=== PATIENT | female | born 1950 | race Caucasian/White ===

== ENCOUNTER 2018-07-23 10:00 | Outpatient (CLI) | payer MEDICARE, OTHER ==
--- NOTE | 2018-07-23 10:59 | GI Initial Consult Note ---
History of Present Illness General Date patient seen: Jul 23, 2018 Time patient seen: 10:55 Referring physician: HAKAN Reason for Consultation: ANEMIA Present Illness HPI 68 year old female patient presents today for evaluation of anemia with positive FOB. Patient has c/o of generalized abdominal pain, constipation and abdominal bloating. In addition, states she has periods of fatigue. Her last EGD / colonoscopy was performed in 2006. Denies any unintentional weight loss or changes in dietary habits. No signs of abuse or neglect. Patient is not fall risk. See nursing medication reconciliation list. Allergies: Coded Allergies: Sulfa (Sulfonamide Antibiotics) (Unverified Allergy, Severe, 07/23/18) Patient History History Provided By: Patient, Medical Record PMH Narrative Rt ankle fracture Anxiety Depression Arthritis Past Surgical History: 2006 Left Kidney donation Family History Narrative Father >> CVA Mother >> Breast CA Social History: Denies: smoking, alcohol use, drug use, other Review of Systems All Other Systems: negative except mentioned in HPI Physical Exam T 97.0 BP 127/74 64 HR 96 RA Sp02 EP Interpretation: reviewed, normal General Appearance: well appearing, no apparent distress, alert Head: normocephalic EENT: PERRL/EOMI, normal ENT inspection Neck: supple Respiratory: normal breath sounds, no respiratory distress Cardiovascular: normal rate Gastrointestinal: normal inspection, non tender, soft, normal bowel sounds, non -distended Rectal: deferred Genitourinary: no CVA tenderness Musculoskeletal: normal inspection, back normal Neurologic: normal inspection, alert, oriented x3, responsive Psychiatric: normal inspection, judgement/insight normal, memory normal Skin: normal inspection, normal color, no rash, warm/dry, palpation normal, well hydrated Lymphatic: normal inspection, no adenopathy GI: Plan Problems: (1) Anemia (2) Colonoscopy planned (3) Abdominal pain (4) Constipation (5) Abdominal bloating Plan EGD/colonoscopy scheduled 07/31/18. - CLD & (Nulytely/Suprep/Movi-Prep) prep instructions given and acknowledged by patient. - NPO @ RI day prior procedure explained. Seen with Dr. Callejas. Thank you for this patient referral. The patient was seen and examined at bedside and all new and available data was reviewed in the patients chart. I agree with the above findings, impression and plan. (Patient seen earlier today. Signature stamp does not reflect patient encounter time.). - MD Kadie Faustin Anh-Jabier AGUILERA Jul 23, 2018 10:59
[2018-07-23] MEDS ORDERED: CRESTOR20 MG ORAL (13:48)
[2018-07-23] MEDS ORDERED: KLONOPIN0.5 MG ORAL (13:48)
[2018-07-23] MEDS ORDERED: LEXAPRO10 MG ORAL (13:48)
[2018-07-23] MEDS ORDERED: IRON325 M1 PO (13:48)
[2018-07-23] MEDS ORDERED: ACETAMINOPHEN325 M1 ORAL (13:48)
[2018-07-23] MEDS ORDERED: VITAMIN D1000 UNI1 ORAL (13:48)
[2018-07-23] MEDS ORDERED: CALCIUM500 M2 PO (13:48)
== END 2018-07-23 10:30 | disposition home or self-care (01) ==
LOC: PAN 10:00
DX: D64.9 Anemia, unspecified (principal); R19.5 Other fecal abnormalities; R10.84 Generalized abdominal pain; K59.00 Constipation, unspecified; R14.0 Abdominal distension (gaseous); F41.9 Anxiety disorder, unspecified; F32.9 Major depressive disorder, single episode, unspecified; M19.90 Unspecified osteoarthritis, unspecified site; R53.83 Other fatigue
CPT/HCPCS: 99201

== ENCOUNTER 2018-07-31 07:09 | Day surgery (SDC) | payer MEDICARE, MEDICAID ==
[2018-07-31] VITALS (8 sets, daily range): BP systolic 122–137; BP diastolic 64–79
[~2018-07-31] VITALS: Ht 157.5 cm; Wt 81.2 kg
[~2018-07-31 07:09] MED LIST: ACETAMINOPHEN325 M1 ORAL; CALCIUM500 M2 PO; CRESTOR20 MG ORAL; IRON325 M1 PO; KLONOPIN0.5 MG ORAL; LEXAPRO10 MG ORAL; VITAMIN D1000 UNI1 ORAL
[2018-07-31] MEDS ORDERED: LOVASTATIN20 MG ORAL (08:26)
--- NOTE | 2018-07-31 08:28 | Anethesia Preoperative Eval ---
Anesthesia Pre-op PMH/ROS General Date of Evaluation: Jul 31, 2018 Time of Evaluation: 08:25 Anesthesiologist: Roxana Leiva CRNA ASA Score: ASA 2 Mallampati Score Class I : Soft palate, uvula, fauces, pillars visible Class II: Soft palate, uvula, fauces visible Class III: Soft palate, base of uvula visible Class IV: Only hard plate visible Mallampati Classification: Class II Surgeon: Merrill Diagnosis: Abdominal pain, anemia Surgical Procedure: EGD & colonoscopy diagnostic Anesthesia History: none Family History: no anesthesia problems Allergies: Coded Allergies: SULFA (SULFONAMIDE ANTIBIOTICS) (Unverified Allergy, Severe, 07/30/18) SWELLING,DIFFICULTY BREATHING AND REDNESS Medications: see eMAR Patient NPO?: Yes NPO Date: Jul 31, 2018 NPO Time: 00:00 Past Medical History Cardiovascular: Reports: other - Hyperlipemia; Denies: HTN, CAD, MT, valve dz, arrhythmia Pulmonary: Reports: other - solitary kidney s/p nephrectomyfor donation; Denies: asthma, COPD, DOM Gastrointestinal/Genitourinary: Denies: GERD, CRI, ESRD, other Neurologic/Psychiatric: Reports: depression/anxiety; Denies: dementia, CVA, TIA, other Endocrine: Denies: DM, hypothyroidism, steroids, other HEENT: Denies: cataract (L), cataract (R), glaucoma, [place] (L), [place] (R), other Hematology/Immune: Reports: anemia; Denies: DVT, bleeding disorder, other Musculoskeletal/Integumentary: Reports: OA; Denies: RA, DJD, DDD, edema, other Other: obesity PMH Narrative: as above PSxH Narrative: nephrectomy directed donor Anesthesia Pre-op Phys. Exam Physician Exam Last Vital Signs Date Time Temp Pulse Resp B/P (MAP) Pulse Ox O2 Delivery O2 Flow Rate FiO2 07/31/18 08:00 Room Air 07/31/18 07:44 97.8 61 18 135/74 97 97.8 Constitutional: NAD Neurologic: CN 2-12 intact Cardiovascular: RRR Respiratory: CTA Gastrointestinal: S/NT/ND Airway Exam Mallampati Score: Class II MO: full Neck: no limitations TMD: > 3 FB ROM: full Teeth: intact Dentures: no upper, no lower Anesthesia Pre-op A/P Studies Pre-op Studies: EKG - SB inferior infact Risk Assessment & Plan Assessment: ASA 2, ok to proceed Plan: MAC Status Change Before Surgery: No Pre-Antibiotics Given Within 1 Hr of Incision: No Roxana Leiva CRNA Jul 31, 2018 08:28
--- NOTE | 2018-07-31 08:48 | Pre-Procedure Note/Attestation ---
Pre-Procedure Note/Attestation Complete Prior to Procedure Planned Procedure: not applicable Procedure Narrative: esophagogastroduodenoscopy and colonoscopy Indications for Procedure Pre-Operative Diagnosis: anemia Attestation I attest that I discussed the nature of the procedure; its benefits; risks and complications; and alternatives (and the risks and benefits of such alternatives ), prior to the procedure, with the patient (or the patient's legal sales support representative). I attest that, if there was a reasonable possibility of needing a blood transfusion, the patient (or the patient's legal sales support representative) was given the [facility] standardized written summary, pursuant to the Alex [place] Blood Safety Act ([place] Health and Safety Code # 1645, as amended). I attest that I re-evaluated the patient just prior to the surgery and that there has been no change in the patient's H&P, except as documented below: Aramis Callejas MD Jul 31, 2018 08:48
--- NOTE | 2018-07-31 08:48 | Short Stay Surgery H&P ---
History of Present Illness History of Present Illness Chief Complaint see recent office note HPI Amber Krueger is a 68 year old female who was admitted on for Abdominal Pain, Anemia Patient History Allergies: Coded Allergies: SULFA (SULFONAMIDE ANTIBIOTICS) (Unverified Allergy, Severe, 07/30/18) SWELLING,DIFFICULTY BREATHING AND REDNESS Medication History Scheduled Acetaminophen* (Acetaminophen 325MG Tablet*), 325 MG ORAL PRN, (Reported) Calcium Carbonate (Calcium), 1,000 MG PO DAILY, (Reported) Cholecalciferol (Vitamin D3)* (Vitamin D*), 1,000 UNIT ORAL DAILY, (Reported) Clonazepam* (Klonopin*), 0.5 MG ORAL PRN, (Reported) Escitalopram Oxalate* (Lexapro*), 10 MG ORAL DAILY, (Reported) Ferrous Sulfate (Iron), 325 MG PO DAILY, (Reported) Lovastatin (Lovastatin), 20 MG ORAL BEDTIME, (Reported) Discontinued Medications Rosuvastatin Calcium* (Crestor*), 20 MG ORAL DAILY, (Reported) Discontinued Reason: MD discontinued med Physical Exam Vital Signs Last Vital Signs Date Time Temp Pulse Resp B/P (MAP) Pulse Ox O2 Delivery O2 Flow Rate FiO2 07/31/18 08:00 Room Air 07/31/18 07:44 97.8 61 18 135/74 97 97.8 Plan Attestation Are the patient's medical conditions optimized for surgery? Aramis Callejas MD Jul 31, 2018 08:48
--- NOTE | 2018-07-31 09:14 | Endoscopy Procedure Note ---
Endoscopy Procedure Note General Indication for Procedure: anemia Procedures Performed: EGD, colonoscopy Operative Findings/Diagnosis: gastritis, hemorrhoids Specimen: yes Pt Tolerated Procedure Well: Yes Estimated Blood Loss: none Anesthesia Anesthesiologist: davon Anesthesia: MAC Inserted Devices Implant(s) used?: No Quality Quality of Bowel Preparation: Good Did scope reach the cecum?: Yes Was there any complications?: No GI Core Measures 50 yrs or older w/o bx or poly: No 10yrs. F/U not recommended: Yes If not recommended, why?: Above average risk 10 yrs. F/U needed: Yes 18 years or older w/prev. colo: No Aramis Callejas MD Jul 31, 2018 09:14
--- NOTE | 2018-07-31 09:26 | Immediate Post-Op Evaluation ---
Immediate Post-Op Evalulation Immediate Post-Op Evalulation Procedure: EGD and colonoscopy Date of Evaluation: Jul 31, 2018 Time of Evaluation: 09:17 IV Fluids: LR 600 ml Blood Pressure Systolic: 122 Blood Pressure Diastolic: 66 Pulse Rate: 57 Respiratory Rate: 22 O2 Sat by Pulse Oximetry: 97 Temperature (Fahrenheit): 98.2 Pain Score (1-10): 0 Nausea: No Vomiting: No Complications none Patient Status: awake, reacts, patent Hydration Status: adequate Given Within 1 Hr of Incision: Roxana Mancuso CRNA Jul 31, 2018 09:26
--- NOTE | 2018-07-31 11:12 | 48 Hour Post Anesthesia Eval ---
Post Anesthesia Evaluation Procedure: EGD and colonoscopy Date of Evaluation: Jul 31, 2018 Time of Evaluation: 10:30 Blood Pressure Systolic: 122 0: 74 Pulse Rate: 64 Respiratory Rate: 20 Temperature (Fahrenheit): 97.6 O2 Sat by Pulse Oximetry: 98 Airway: patent Nausea: No Vomiting: No Pain Intensity: 0 Hydration Status: adequate Cardiopulmonary Status: stable Mental Status/LOC: patient returned to baseline Follow-up Care/Observations: per GI Post-Anesthesia Complications: none Follow-up care needed: ready to discharge Roxana Leiva CRNA Jul 31, 2018 11:12
--- NOTE | 2018-07-31 12:00 | Procedure Note ---
DATE OF PROCEDURE: 07/31/2018 SURGEON: Aramis Callejas M.D. ANESTHESIOLOGIST: Roxana MEREDITH. PROCEDURE: Upper endoscopy with biopsy and colonoscopy. ANESTHESIA: Per Roxana MEREDITH. INSTRUMENT: Olympus adult flexible upper endoscope and colonoscope. INDICATION: Anemia, stool OB positive, screening colonoscopy evaluation, chronic GERD. The procedure, risks, benefits, and possible consequences, including hemorrhage, aspiration, perforation and infection, and alternative treatments, were explained to the patient/legal guardian by Dr. Aramis Callejas and the patient/legal guardian understood and accepted these risks. DESCRIPTION OF PROCEDURE: After informed consent was obtained and the patient was adequately sedated, Olympus upper endoscope was advanced from the mouth to the second portion of duodenum and retroflexion was performed in the stomach. The patient had evidence of paraesophageal hernia. A small inlet patch. Gastritis, status post biopsy of the body and antrum. The rest of the exam grossly looked within normal limits. At this time, the upper endoscope was retrieved. The patient was turned over for colonoscopy. First, rectal exam was performed which was positive for internal hemorrhoids. Then, the scope was advanced from the rectum into the cecum and subsequently to terminal ileum. Quality of prep was good. The patient had normal colonoscopy examination. No mass. No polyp. No other pathology was seen. Retroflexion of rectum showed evidence of medium-sized nonbleeding internal hemorrhoids. SUMMARY OF FINDINGS: 1. Inlet patch, small. 2. Paraesophageal hernia. 3. Gastritis, status post biopsy. 4. Normal colonoscopy examination except for internal hemorrhoids. RECOMMENDATIONS: 1. Follow up biopsy results and treat accordingly. 2. We will recommend capsule endoscopy as an outpatient for evaluation of iron-deficiency anemia. Aramis Callejas M.D. DR: Timo JOB#: [id number] CC:
--- NOTE | 2018-07-31 18:21 | Cardiology Report ---
APPROVED REPORT EKG Measurement Heart [id number] ND [id number] Sinus bradycardia Inferior infarct, age undetermined Abnormal ECG
== END 2018-07-31 10:35 | disposition home or self-care (01) ==
LOC: GAS 07:09
DX: Z12.11 Encounter for screening for malignant neoplasm of colon (principal); K64.8 Other hemorrhoids; K29.50 Unspecified chronic gastritis without bleeding; K44.9 Diaphragmatic hernia without obstruction or gangrene; D64.9 Anemia, unspecified; E78.5 Hyperlipidemia, unspecified; F32.9 Major depressive disorder, single episode, unspecified; F41.9 Anxiety disorder, unspecified; M19.90 Unspecified osteoarthritis, unspecified site; Z88.2 Allergy status to sulfonamides
CPT/HCPCS: 43239; 82378; 93005; G0121; 94003; 94150

== ENCOUNTER 2018-08-15 13:55 | Outpatient (CLI) | payer MEDICARE, MEDICAID ==
[~2018-08-15 13:55] MED LIST changes: +LOVASTATIN20 MG ORAL
[2018-08-15 15:30] VITALS: BP 130/76
[2018-08-15 16:49] LABS: BASOPHILS % (AUTO) 0.6 % (0.0-2.0); EOSINOPHILS % (AUTO) 2.7 % (0.0-3.0); HEMOGLOBIN 12.1 G/DL (12.0-16.0); LYMPHOCYTES % (AUTO) 29.5 % (20.0-45.0); MEAN CORPUSCULAR VOLUME 81 FL (80-99); MONOCYTES % (AUTO) 4.6 % (1.0-10.0); NEUTROPHILS % (AUTO) 62.6 % (45.0-75.0); PLATELET COUNT 364 K/UL (150-450); RED BLOOD COUNT 4.56 M/UL (4.20-5.40); RED CELL DISTRIBUTION WIDTH 16.3 % (11.6-14.8); WHITE BLOOD COUNT 7.9 K/UL (4.8-10.8)
--- NOTE | 2018-08-15 20:10 | GI Progress Note ---
Assessment/Plan Problems: (1) GERD (gastroesophageal reflux disease) ICD Codes: K21.9 - Gastro-esophageal reflux disease without esophagitis SNOMED: 912732094 (2) Gastritis ICD Codes: K29.70 - Gastritis, unspecified, without bleeding SNOMED: 2669127 (3) Paraesophageal hernia ICD Codes: K44.9 - Diaphragmatic hernia without obstruction or gangrene SNOMED: 4181206 (4) Anemia ICD Codes: D64.9 - Anemia, unspecified SNOMED: 969645135 Status Narrative Seen with Dr. Callejas. Assessment/Plan EGD/Colonoscopy reviewed with the patient - Inlet patch, small - Paraesophageal hernia - Gastritis, status post biopsy - Normal colonoscopy examination except for internal hemorrhoids Cardiology referral CBC Patient to be scheduled for SB capsule endoscopy The patient was seen and examined at bedside and all new and available data was reviewed in the patients chart. I agree with the above findings, impression and plan. (Patient seen earlier today. Signature stamp does not reflect patient encounter time.). - Aramis Callejas MD Subjective Gastrointestinal/Abdominal: Denies: no symptoms, abdomen distended, abdominal pain, black stools, tarry stools, blood in stool, constipated, diarrhea, difficulty swallowing, nausea, poor appetite, poor fluid intake, rectal bleeding , vomiting, other Objective Last 24 Hour Vital Signs Date Time Temp Pulse Resp B/P (MAP) Pulse Ox O2 Delivery O2 Flow Rate FiO2 08/15/18 15:30 98.3 74 16 130/76 96 Laboratory Tests Test 08/15/18 16:00 White Blood Count 7.9 K/UL (4.8-10.8) Red Blood Count 4.56 M/UL (4.20-5.40) Hemoglobin 12.1 G/DL (12.0-16.0) Hematocrit 37.0 % (37.0-47.0) Mean Corpuscular Volume 81 FL (80-99) Mean Corpuscular Hemoglobin 26.7 PG (27.0-31.0) L Mean Corpuscular Hemoglobin Concent 32.8 G/DL (32.0-36.0) Red Cell Distribution Width 16.3 % (11.6-14.8) H Platelet Count 364 K/UL (150-450) Mean Platelet Volume 5.8 FL (6.5-10.1) L Neutrophils (%) (Auto) 62.6 % (45.0-75.0) Lymphocytes (%) (Auto) 29.5 % (20.0-45.0) Monocytes (%) (Auto) 4.6 % (1.0-10.0) Eosinophils (%) (Auto) 2.7 % (0.0-3.0) Basophils (%) (Auto) 0.6 % (0.0-2.0) General Appearance: WD/WN, no apparent distress, alert Cardiovascular: normal rate Respiratory/Chest: normal breath sounds, no respiratory distress Abdominal Exam: normal bowel sounds, non tender, soft Extremities: normal range of motion, non-tender Char Engle NP Aug 15, 2018 20:10
== END 2018-08-15 14:25 | disposition home or self-care (01) ==
LOC: PAN 13:55
DX: K21.9 Gastro-esophageal reflux disease without esophagitis (principal); K29.70 Gastritis, unspecified, without bleeding; K44.9 Diaphragmatic hernia without obstruction or gangrene; D64.9 Anemia, unspecified
CPT/HCPCS: 36415; 85025; G0463; 99212

== ENCOUNTER 2018-08-22 09:40 | Outpatient (CLI) | payer MEDICARE, MEDICAID ==
--- NOTE | 2018-08-22 23:17 | GI Progress Note ---
Assessment/Plan Problems: (1) Anemia ICD Codes: D64.9 - Anemia, unspecified SNOMED: 220444424 (2) Positive occult stool blood test ICD Codes: R19.5 - Other fecal abnormalities SNOMED: 55938357, 419656885 (3) GERD (gastroesophageal reflux disease) ICD Codes: K21.9 - Gastro-esophageal reflux disease without esophagitis SNOMED: 709386147 (4) Paraesophageal hernia ICD Codes: K44.9 - Diaphragmatic hernia without obstruction or gangrene SNOMED: 5949028 (5) Gastritis ICD Codes: K29.70 - Gastritis, unspecified, without bleeding SNOMED: 4536549 Status: stable Status Narrative Discussed with Dr. Callejas. Assessment/Plan cardiology referral CBC SBCE today RTC tomorrow for equipment return will follow with additional recs The patient was seen and examined at bedside and all new and available data was reviewed in the patients chart. I agree with the above findings, impression and plan. (Patient seen earlier today. Signature stamp does not reflect patient encounter time.). - Aramis Callejas MD Subjective Gastrointestinal/Abdominal: Reports: no symptoms Objective T 98.3 BP 124/71 P 74' 95 RA General Appearance: WD/WN, no apparent distress, alert Cardiovascular: normal rate Respiratory/Chest: normal breath sounds, no respiratory distress Abdominal Exam: normal bowel sounds, non tender, soft Extremities: normal range of motion, non-tender Char Engle NP Aug 22, 2018 23:17
== END 2018-08-22 10:10 | disposition home or self-care (01) ==
LOC: PAN 09:40
DX: D64.9 Anemia, unspecified (principal); R19.5 Other fecal abnormalities; K21.9 Gastro-esophageal reflux disease without esophagitis; K44.9 Diaphragmatic hernia without obstruction or gangrene; K29.70 Gastritis, unspecified, without bleeding

== ENCOUNTER 2018-09-17 10:23 | Outpatient (CLI) | payer MEDICARE, MEDICAID ==
[2018-09-17 11:00] VITALS: BP 126/71
--- NOTE | 2018-09-17 11:13 | GI Progress Note ---
Assessment/Plan Problems: (1) Gastritis ICD Codes: K29.70 - Gastritis, unspecified, without bleeding SNOMED: 9906294 (2) Positive occult stool blood test ICD Codes: R19.5 - Other fecal abnormalities SNOMED: 94457683, 579340629 (3) GERD (gastroesophageal reflux disease) ICD Codes: K21.9 - Gastro-esophageal reflux disease without esophagitis SNOMED: 355430326 (4) Anemia ICD Codes: D64.9 - Anemia, unspecified SNOMED: 402521559 (5) Abdominal pain ICD Codes: R10.9 - Unspecified abdominal pain SNOMED: 98304846 (6) Abdominal bloating ICD Codes: R14.0 - Abdominal distension (gaseous) SNOMED: 786563212 (7) Constipation ICD Codes: K59.00 - Constipation, unspecified SNOMED: 21213727 Status: stable Status Narrative Seen with Dr. Callejas. Assessment/Plan cardiology referral noted >> unremarkable history of iron deficiency SBCE reviewed with patient >> unremarkable RTC x1 month plan to send for OB stool & CBC repeat capsule endoscopy if needed The patient was seen and examined at bedside and all new and available data was reviewed in the patients chart. I agree with the above findings, impression and plan. (Patient seen earlier today. Signature stamp does not reflect patient encounter time.). - Aramis Callejas MD Subjective Subjective constipation generalized weakness, fatigue, pain x 6-7 months Objective T 97.9 BP 126/71 P 77' 96 RA General Appearance: WD/WN, no apparent distress, alert Cardiovascular: normal rate Respiratory/Chest: normal breath sounds, no respiratory distress Abdominal Exam: normal bowel sounds, non tender, soft Extremities: normal range of motion, non-tender Char Engle [employer] ASSOCIATE Sep 17, 2018 11:13
== END 2018-09-17 10:53 | disposition home or self-care (01) ==
LOC: PAN 10:23
DX: K29.70 Gastritis, unspecified, without bleeding (principal); R19.5 Other fecal abnormalities; K21.9 Gastro-esophageal reflux disease without esophagitis; D64.9 Anemia, unspecified; R14.0 Abdominal distension (gaseous); K59.00 Constipation, unspecified
CPT/HCPCS: 99212